=== PATIENT | female | born 1990 | race Caucasian/White ===

== ENCOUNTER 2018-08-29 10:05 | Emergency (ER) | payer OTHER ==
--- OUTSIDE RECORDS SUMMARY | 2018-08-29 10:56 | XMS REPORT | Continuity of Care Document ---
:1990 External Reference #:[id number] Author Name Amalia Hearn M.D. Address [address] [facility] [address] [place] [address] Care Team Providers Name Role Phone Jocelin Harrison MD Care Team Information Rn Mds Unavailable Jocelin Harrison MD Primary Care Physician Unavailable Payers Date Identification Numbers Payment Provider Subscriber Policy Number: [id number] [employer] Columba Rollins PayID: [id number] [address] [place] [address] Advance Directives Description No Information Available Problems Active Problems Provider Date Hydronephrosis Amalia Hearn M.D. Onset: 07/31/2018 Kidney stone Amalia Hearn M.D. Onset: 07/31/2018 Resolved Problems Surgical follow-up Dylan Luna MD Onset: 02/07/2013 Resolved: 02/07/2013 Acute appendicitis without peritonitis Dilshad Tolentino MD Onset: 02/07/2013 Resolved: 02/07/2013 Light and infrequent menstruation Esther Sky, AYSE Onset: 11/24/2011 Resolved: 05/21/2015 Normal Mary Kapoor MD Onset: 11/05/2014 Resolved: 05/21/2015 Family History Date Family Member(s) Observation Comments General one daughter has murmur and ? hole in heart Father No Current Problems Mother Kidney Stones Mother Pancreatitis Social History Type Date Description Comments Sex Unknown Lives With Children Lives With Sister Lives With Family Diet Patient follows no dietary restrictions Occupation Works at [employer] Tobacco Use Start: Unknown Current Cigarette Smoker 1 x 6-7 years Pack Daily ETOH Use Denies alcohol use Tobacco Use Start: Unknown End: Patient is a former smoker Unknown Recreational Drug Use Denies Drug Use Smoking Status Reviewed: 07/31/18 Patient is a former smoker Allergies, Adverse Reactions, Alerts Active Allergies Reaction Severity Comments Date Penicillin 01/31/2013 Sulfa Drugs 01/31/2013 Ceclor hives/joint swelling 01/31/2013 Amoxicillin 01/31/2013 Medications Active Medications SIG Qnty Indications Ordering Provider Date Work August Antwon, 05/21/2015 return to work MD Mary with no restrictions. Acetaminophen 20 ml by mouth q 960ml Antwon, 04/07/2015 160mg/5ML 4 hours as MD Mary Elixir needed Flintstones Plus Iron 1 tab daily Unknown Chewtabs History Medications Fludrocortisone Acetate 1 by mouth every 90tabs Foster Prescott 2017 - marc Leo M.D., [facility] 07/31/2018 0.1mg Tablets Azithromycin 12.5 ml by mouth 37.5ml Antwon, 05/21/2015 - 200mg/5ML day 1 then 6.25 MD Mary 05/27/2015 Suspension Rec ml day 2-5 Azithromycin 12.5 ml by mouth 37.5ml Antwon, 05/11/2015 - 200mg/5ML day 1 then 6.25 MD Mary 05/16/2015 Suspension Rec ml day 2-5 Ortho Evra apply one patch 3units Kapoor, 04/30/2015 - 150-35mcg/24HR topically once a MD Mary Unknown Patches Weekly week Ibuprofen Childrens 30 ml by mouth 474ml Antwon, 04/07/2015 - every 4 hours as MD Mary 07/31/2018 100mg/5ML Suspension needed Pantoprazole Sodium 1 by mouth every 30tabs Antwon, 02/02/2015 - 40mg day MD Mary 05/21/[address] No Active Medications Unknown 08/12/2014 - 08/12/2014 1 by mouth every 30tabs Antwon, 08/12/2014 - 27-1mg Tablets day MD Mary 05/21/2015 Zofran Odt 1 by mouth every 15tabs Antwon 08/12/2014 - 4mg Tablets 4 hours as needed MD Mary 12/03/2014 Dispers Azithromycin 12.5 ml by mouth 37.5ml Antwon, 08/05/2014 - 200mg/5ML day 1 then 6.25 MD Mary 08/12/2014 Suspension Rec ml day 2-5 Loratadine Childrens 10 ml by mouth 300units Antwon 10/28/2013 - every day MD Mary 08/12/2014 5mg/5ML Solution Mirena Antwon, 10/01/2013 - 20mcg/24HR IUD MD Mary 08/05/2014 No Active Medications Dylan Luna MD 01/31/2013 - 10/28/2013 Immunizations CPT Code Status Date Vaccine Lot # [id number] Given 10/01/2013 Hepatitis B Vaccine Pediatric/Adolescent 30984 Given 01/15/1998 Varicella (Chicken Pox) Vaccine 55144 Given 01/15/1998 Poliovirus Vaccine Subcutaneous Or Intramuscular 22265 Given 01/15/1998 MMR Vaccine, Live, For Subcutaneous Use 70028 Given 09/15/1997 DTaP Vaccine Younger Than 7 87683 Given 06/22/1994 Poliovirus Vaccine Subcutaneous Or Intramuscular 51362 Given 06/22/1994 MMR Vaccine, Live, For Subcutaneous Use 19811 Given 06/22/1994 DTaP Vaccine Younger Than 7 52804 Given 06/22/1994 Hib PRP-T Conjugate 4 Dose Schedule 61347 Given 03/29/1993 Hepatitis B Vaccine Pediatric/Adolescent 17765 Given 1992 DTaP Vaccine Younger Than 7 71736 Given 1992 Hib PRP-T Conjugate 4 Dose Schedule 83544 Given 1992 Hepatitis B Vaccine Pediatric/Adolescent 38381 Given 1990 Poliovirus Vaccine Subcutaneous Or Intramuscular 46707 Given 1992 DTaP Vaccine Younger Than 7 23249 Given 1992 Hib PRP-T Conjugate 4 Dose Schedule 78983 Given 1990 Poliovirus Vaccine Subcutaneous Or Intramuscular 59655 Given 1992 DTaP Vaccine Younger Than 7 77904 Given 1990 Hib PRP-T Conjugate 4 Dose Schedule Vital Signs Date Vital Result Comment 07/31/2018 10:11am BP Systolic 108 mmHg BP Diastolic 72 mmHg Body Temperature 97.9 F Heart Rate 105 /min Respiratory Rate 16 /min Height 62 inches 5'2" Weight 123.12 lb BMI (Body Mass Index) 22.5 kg/m2 BSA (Body Surface Area) 1.56 m2 [place] body weight in kilograms 50 kg O2 % BldC Oximetry 98 % Pain Level 3 right flank pain 02/27/2018 3:19pm BP Systolic Sitting Left Arm 98 mmHg BP Diastolic Sitting Left Arm 60 mmHg Heart Rate 93 /min Respiratory Rate 16 /min Height 65 inches 5'5" Weight 98.00 lb BMI (Body Mass Index) 16.3 kg/m2 BSA (Body Surface Area) 1.46 m2 [place] body weight in kilograms 57 kg O2 Saturation Level with Exercise 98 % 05/21/2015 5:35pm BP Systolic 118 mmHg BP Diastolic 62 mmHg Height 65 inches 5'5" Weight 116.50 lb BMI (Body Mass Index) 19.4 kg/m2 BSA (Body Surface Area) 1.57 m2 Last Menstrual Period [id number] 03/31/2015 5:42pm BP Systolic 106 mmHg BP Diastolic 70 mmHg Height 62 inches 5'2" Weight 136.31 lb BMI (Body Mass Index) 24.9 kg/m2 BSA (Body Surface Area) 1.62 m2 03/24/2015 2:47pm BP Systolic 100 mmHg BP Diastolic 70 mmHg Height 62 inches 5'2" Weight 135.38 lb BMI (Body Mass Index) 24.8 kg/m2 BSA (Body Surface Area) 1.62 m2 03/17/2015 6:16pm BP Systolic 106 mmHg BP Diastolic 78 mmHg Height 62 inches 5'2" Weight 134.38 lb BMI (Body Mass Index) 24.6 kg/m2 BSA (Body Surface Area) 1.61 m2 03/10/2015 7:12pm BP Systolic 112 mmHg BP Diastolic 60 mmHg Height 62 inches 5'2" Weight 134.25 lb BMI (Body Mass Index) 24.6 kg/m2 BSA (Body Surface Area) 1.61 m2 02/23/2015 7:21pm BP Systolic 120 mmHg BP Diastolic 54 mmHg Height 62 inches 5'2" Weight 130.38 lb BMI (Body Mass Index) 23.8 kg/m2 BSA (Body Surface Area) 1.59 m2 02/02/2015 7:15pm BP Systolic 120 mmHg BP Diastolic 58 mmHg Height 63 inches 5'3" Weight 124.00 lb BMI (Body Mass Index) 22.0 kg/m2 BSA (Body Surface Area) 1.58 m2 12/03/2014 2:02pm BP Systolic 108 mmHg BP Diastolic 60 mmHg Height 62 inches 5'2" Weight 106.25 lb BMI (Body Mass Index) 19.4 kg/m2 BSA (Body Surface Area) 1.46 m2 10/29/2014 6:39pm BP Systolic 100 mmHg BP Diastolic 62 mmHg Height 62 inches 5'2" Weight 102.00 lb BMI (Body Mass Index) 18.7 kg/m2 BSA (Body Surface Area) 1.44 m2 08/12/2014 10:31am BP Systolic Sitting Left Arm 104 mmHg BP Diastolic Sitting Left Arm 64 mmHg Weight 95.00 lb Last Menstrual Period [id number] 08/05/2014 1:37pm BP Systolic 90 mmHg BP Diastolic 54 mmHg Height 62 inches 5'2" Weight 98.00 lb BMI (Body Mass Index) 17.9 kg/m2 BSA (Body Surface Area) 1.41 m2 01/20/2014 1:40pm BP Systolic 108 mmHg BP Diastolic 56 mmHg Body Temperature 99.6 F Weight 99.00 lb 10/28/2013 4:44pm BP Systolic 92 mmHg BP Diastolic 64 mmHg Body Temperature 99.0 F Height 62 inches 5'2" Weight 97.00 lb 10/01/2013 10:25am BP Systolic 110 mmHg BP Diastolic 62 mmHg Heart Rate 100 /min Height 63 inches 5'3" Weight 97.00 lb 05/24/2013 11:07am BP Systolic 104 mmHg BP Diastolic 62 mmHg Height 63 inches 5'3" Weight 96.00 lb 02/07/2013 1:52pm BP Systolic Sitting Left Arm 106 mmHg BP Diastolic Sitting Left Arm 68 mmHg Body Temperature 99.2 F Heart Rate 101 /min Height 61 inches 5'1" Weight 95.00 lb BMI (Body Mass Index) 17.9 kg/m2 BSA (Body Surface Area) 1.38 m2 11/24/2011 10:58am BP Systolic 118 mmHg BP Diastolic 70 mmHg Height 61 inches 5'1" Weight 92.00 lb 01/24/2011 11:31am BP Systolic 98 mmHg BP Diastolic 60 mmHg Height 62 inches 5'2" Weight 98.00 lb Results Test Date Facility Test Result H/L Range Note Urine Dipstick 07/31/2018 [facility] Ua Color bloody Yellow Ua Clarity bloody Clear Ua Leuko 500 High Negative Ua Nitrite neg Negative Ua Urobilinogen 0.2 0.2 - 1.0 E.U./dL Ua Protein 30 High Negative Ua PH 6.0 Low 6.5-7.5 Ua Blood 200 High Negative Ua Specific Drift 1.020 1.010-1.030 Ua Ketones 5mg High Negative Ua Bilirubin neg Negative Ua Glucose neg Negative CBC 04/05/2015 [facility] White Blood Count 11.5 K/uL High 3.1-10.[address] [place] [address] [phone] Red Blood Count 3.94 M/uL 3.90-5.40 Hemoglobin 11.4 gm/dL Low 11.6-15.8 Hematocrit 35.9 % Low 36.0-46.1 Mean Cell Volume 91.1 fl 80.9-99.0 Mean Corpuscular HGB 28.9 pg 25.9-32.7 Mean Corpuscular HGB Conc 31.8 g/dL 30.8-34.3 Platelet Count 215 K/uL 155-360 Red Cell Distri Width %CV 13.8 % 11.7-14.4 Mean Platelet Volume 10.9 fL 8.9-12.4 Laboratory test 04/05/2015 [facility] Treponema Nonreactive [address] [place] [address] [place] [phone] Type And Screen 04/05/2015 [facility] Patient Blood A POS [address] [place] [address] [phone] Antibody Screen Negative Negative Laboratory test 03/10/2015 [facility] Vaginal Strep See Note [address] [place] [address] [phone] Laboratory test 03/10/2015 [facility] Chlamydia Negative Negative [address] Trachomatis, [place] [address] Cristy [phone] Glucose,1 HR Post 01/15/2015 [facility] 1 HR 102 mg/dL -138 [address] [place] [address] Gluc[place] [phone] 1 Hour Urine Glucose NEGATIVE % Negative 1 Hour Urine Ketone NEGATIVE Negative Hemoglobin/Hematocrit 01/15/2015 [facility] Hemoglobin 11.1 Low 11.6-15.[address] gm/dL [place], [place] [id number] [phone] Hematocrit 34.1 % Low 36.0-46.1 CBC W/Automated Diff 10/29/2014 [facility] White Blood 8.6 K/uL 3.1-10.[address] Count [place], [place] [id number] [phone] Red Blood Count 3.64 M/uL Low 3.90-5.40 Hemoglobin 12.3 gm/dL 11.6-15.8 Hematocrit 35.0 % Low 36.0-46.1 Mean Cell Volume 96.2 fl 80.9-99.0 Mean Corpuscular HGB 33.8 pg High 25.9-32.7 Mean Corpuscular HGB Conc 35.1 g/dL High 30.8-34.3 Platelet Count 239 K/uL 155-360 Red Cell Distri Width SD 45.7 fl 3-47 Red Cell Distri Width %CV 13.6 % 11.7-14.4 Mean Platelet Volume 10.5 fL 8.9-12.4 Neut% 65.7 % 40.4-72.8 Lymph % 27.8 % 17.0-46.1 Divide % 5.8 % 4.3-13.2 Eo% 0.6 % 0.0-6.6 Bas% 0.1 % 0.0-1.1 Neut# 5.66 K/uL 1.0-7.0 Lymph # 2.40 K/uL 1.8-7.0 Divide # 0.50 K/uL 0.3-0.9 Eos # 0.05 K/uL 0.0-0.5 Baso # 0.01 K/uL 0.0-0.1 Laboratory test 10/29/2014 [facility] Rapid Plasma NONREACTIVE [address] [place] [address] [phone] Hepatitis B Surface Antigen Nonreactive Nonreactive 6 Rubella IgG 10/29/2014 [facility] Rubella IgG Reactive Antibody [address] [place] [place] [address] [phone] Rubella IgG Iu/ml 217.2 IU/mL >=10.0 7 Laboratory test 10/29/2014 [facility] Antibody Detection See Note [address] [place], [place] [id number] [phone] Lead,Blood (Adult) 1 g/dL 0-19 9 Varicella-Zoster Virus IgG Ab 1730 Immune>165ind 10 Urine Culture See Note 11 Genital Culture W/ Gram 10/29/2014 [facility] Gram Stain See Note 12 Stain [address] [place], [place] [id number] [phone] Genital Culture See Note 13 Chlamydia/GC Cristy 10/29/2014 [facility] Chlamydia Negative Negative [address] Trachomatis, Cristy [place], [place] [address] [phone] Neisseria Gonorrhoeae, Cristy Negative Negative Please note: See Note 14 Type And Screen 10/29/2014 [facility] Patient Blood Type A POS [address] [place], [place] [id number] [phone] Antibody Screen Negative Negative Laboratory test 08/03/2014 [facility] HCG, Quant 11787.0 15 finding [address] mIU/[place] [address] [phone] Urinalysis With 08/03/2014 [facility] Urine Color YELLOW Yellow Microscopic [address] [place] [address] [phone] Urine Clarity CLEAR Clear Urine Glucose - Dipstick NEGATIVE mg/dL Negative Urine Bilirubin - Dipstick NEGATIVE Negative Urine Ketone NEGATIVE mg/dL Negative Urine Specific Drift >=1.030 1.010-1.030 Urine Blood LARGE High Negative Urine PH 5.5 Low 6.5-7.5 Urine Protein - Dipstick NEGATIVE mg/dL Negative Urine Urobilinogen - Dipstick 0.2 E.U./dL 0.2-1.0 Urine Nitrite - Dipstick NEGATIVE Negative Urine Leuk Esterase NEGATIVE Negative Urine RBC 20-30 rbc/hpf High 0-2 Urine WBC 0-2 wbc/hpf 0-7 Urine Epithelial Cells FEW NONESEEN/lpf Urine Bacteria FEW NONESEEN Urine Mucus SMALL NONESEEN Laboratory test 08/03/2014 [facility] Urine Screen See Note 16 finding [address] [place] [address] [phone] Urine Screen 04/22/2014 N2N/[facility] Import Urine Bilirubin Negative Negative - Dipstick Urine Blood Negative Negative Urine Clarity Clear Clear Urine Color Yellow Yellow Urine Glucose - Dipstick Negative mg/dL Negative Urine Ketone Negative mg/dL Negative Urine Leuk Esterase Negative Negative Urine Nitrite - Dipstick Negative Negative Urine PH 6.0 Low 6.5-7.5 Urine Protein - Dipstick Negative mg/dL Negative Urine Specific Drift >=1.030 1.010-1.030 Urine Urobilinogen - Dipstick 0.2 E.U./dL 0.2-1.0 Laboratory test 04/22/2014 N2N/[facility]D Import Urine HCG Negative Negative 17 finding (Qualitative) GC / Chlamydia 01/20/2014 N2N/CCD Import Chlamydia Negative GC Negative 18 Affirm 01/20/2014 N2N/CCD Import Anne Positive 19 Gardnerella Negative Trichomonas Negative Comprehensive Metabolic Panel 01/12/2014 N2N/CCD Import Alb/Glob 1.2 ratio Albumin 4.2 g/dL 3.4-5.0 Alkaline Phosphatase 81 U/L 45-117 Anion Gap 10 mEq/L 8-16 BUN 11 mg/dL 7-18 BUN/Creat 12.2 ratio Bilirubin,Total 0.5 mg/dL 0.2-1.0 Calcium 9.3 mg/dL 8.5-10.1 Carbon Dioxide 26 mmol/L 21-32 Chloride 109 mmol/L High 98-107 Creatinine 0.9 mg/dL 0.6-1.3 Globulin 3.5 g/dL 1.9-4.3 Glom Filtration Rate, Estimate >60 mL/min >60 Glucose 88 mg/dL 74-106 If >60 mL/min >60 20 Potassium 3.7 mmol/L 3.5-5.1 SGPT/Alt 19 U/L 12-78 Sgot/Ast 9 U/L Low 15-37 Sodium 141 mmol/L 136-145 Total Protein 7.7 g/dL 6.4-8.2 CBC 01/12/2014 N2N/CCD Import Hematocrit 41.4 % 36.0-46.1 Hemoglobin 14.5 gm/dL 11.6-15.8 Mean Cell Volume 93.9 fl 80.9-99.0 Mean Corpuscular HGB 32.9 pg High 25.9-32.7 Mean Corpuscular HGB Conc 35.0 g/dL High 30.8-34.3 Mean Platelet Volume 10.7 fL 8.9-12.4 Platelet Count 235 K/uL 155-360 Red Blood Count 4.41 M/uL 3.90-5.40 Red Cell Distri Width %CV 12.2 % 11.7-14.4 White Blood Count 8.6 K/uL 3.1-10.7 Laboratory test 01/12/2014 N2N/CCD Import Thyroid Stim 1.74 uIU/mL 0.36- 3.74 finding Hormone Laboratory test 01/31/2013 [facility] Appendix See Note 21 finding [address] [place] [address] [phone] Type And Screen 07/22/2012 N2N/CCD Import Antibody Screen Negative Negative Patient Blood Type A Pos 1 Please Note: A nonreactive test result does not exclude the possibility of exposure to, or infection with syphilis. T. pallidum antibodies may be undetectable in some stages of the infection and in some clinical conditions. 2 NO GROUP B STREPTOCOCCI ISOLATED 3 A negative result for either C. trachomatis and/or N. gonorrhoeae does not preclued an infection because results are dependent on adequate specimen collection, absence of inhibitors, and sufficient DNA to be detected. 4 POST GLUCOLA 5 PENDING; TEST PERFORMED ON MONDAYS AND THURSDAYS 6 HBsAg not detected; does not exclude the possibility of exposure to or early acute infections with HBV. 7 Values >=10.0 IU/mL are positive for IgG antibodies to rubella virus and are considered IMMUNE. 8 No reportable results 9 Environmental Exposure: WHO Recommendation <20 Occupational Exposure: OSHA Lead Std 40 DESTINI 30 Detection Limit=1 10 Negative <135 Equivocal 135 - 165 Positive >165 A positive result generally indicates exposure to the pathogen or administration of specific immunoglobulins, but it is not indication of active infection or stage of disease. 11 Organism 1 ! ESCHERICHIA COLI Quantity ! 10,000 - 50,000 CFU/mL ESCHERICHIA COLI Target Route Dose M.I.C. RX AB COST ------ ----- -------- ------ -- ------ NITROFURANTOIN <=16 S TRIMETHOPRIM/SULFAMETHOXAZOLE <=20 S AMPICILLIN <=2 S CEFAZOLIN <=4 S AMPICILLIN/SULBACTAM <=2 S CIPROFLOXACIN >=4 R PIPERACILLIN/TAZOBACTAM <=4 S CEFTAZIDIME <=1 S CEFTRIAXONE <=1 S CEFEPIME <=1 S LEVOFLOXACIN >=8 R IMIPENEM <=0.25 S GENTAMICIN <=1 S TOBRAMYCIN <=1 S 12 GRAM STAIN ! GRAM STAIN INDICATES NORMAL GENITAL BONNIE ! FEW GR POS. BACILLI SUGGESTIVE OF LACTOBACILLUS SP. ! RARE GRAM POSITIVE COCCI ! NO WHITE BLOOD CELLS ! 13 Organism 1 ! YEAST SPECIES Quantity ! FEW 14 Acceptable specimens for this test are male urethral swab, endocervical swab and liquid based pap specimens, vaginal swabs in APTIMA transports and first void urine. See online Directory of Services for test number for rectal and pharyngeal specimens. Performed at: RN - [facility] [address] [id number] Publicity Person: Kerry Masters MD, Phone: [phone] Result confirmed by repeat analysis. Approximate Gestational Age and Total BHCG Range: 0.2 - 1 Week........................5-50 mIU/mL 1 - 2 Weeks.....................50-500 mIU/mL 2 - 3 Weeks..................100-5,000 mIU/mL 3 - 4 Weeks.................500-10,000 mIU/mL 4 - 5 Weeks...............1,000-50,000 mIU/mL 5 - 6 Weeks.............10,000-100,000 mIU/mL 6 - 8 Weeks.............15,000-200,000 mIU/mL 2 - 3 Months............10,000-100,000 mIU/mL 16 08/03/14 [facility] Deleted by Reflex Group UACOM 17 FIRST MORNING SPECIMENS GENERALLY CONTAIN THE HIGHEST CONCENTRATION OF HCG AND ARE RECOMMENDED FOR EARLY DETECTION OF . 18 Special Testing Laboratory [facility], [address] [place] [address] GC / CHLAMYDIA REPORT Name: Columba Rollins : 1990 (Age: 23) Sex: F Location: [facility]. Rec. # [id number] Date Collected: 01/20/2014 Billing #: [id number] Date Received: 01/20/2014 Requisition # [id number] Physician(s): ISAEL QUIROZ Source of Specimen: Endocervical swab Results: Neisseria gonorrhoeae NEGATIVE Chlamydia trachomatis NEGATIVE Comment: This analysis was performed using second generation nucleic acid amplification testing (NAAT). Reported: 01/21/2014 Electronic Signature neal Gutierrez 3LM [facility] ICD-9 Codes: 616.10 19 Special Testing Laboratory [address] [place] [address], [address] [place] [address] AFFIRM VAGINOSIS / VAGINITIS REPORT Name: Columba Rollins : 1990 (Age: 23) Sex: F Location: [facility]. Rec. # [id number] Date Collected: 01/20/2014 Billing #: [id number] Date Received: 01/20/2014 Requisition # [id number] Physician(s): ISAEL QUIROZ Source of Specimen: Vaginal Results: Anne species DNA Probe POSITIVE Gardnerella vaginalis DNA Probe NEGATIVE Trichomonas vaginalis DNA Probe NEGATIVE Reported: 01/21/2014 Electronic Signature neal Gutierrez Elliptic [facility] [employer] [facility] ICD-9 Codes: 616.10 20 Note: Persistent reduction for 3 months or more in an eGFR <60 mL/min/1.73 m2 defines CKD. Patients with eGFR values >/=60 mL/min/1.73 m2 may also have CKD if evidence of persistent proteinuria is present. The original MDRD equation for estimated GFR is not valid for patients less than 18 years of age. Additional information may be found at www.kdoqi.org. 21 OPERATION/PROCEDURE Appendectomy DIAGNOSIS: "APPENDIX, APPENDECTOMY": ACUTE APPENDICITIS, WITH SEROSITIS. Rand 1352 GROSS Received in formalin labeled "APPENDIX" is a grossly recognizable inflamed appendix measuring 5.8 cm. in length with a diameter of up to 1.4 cm. There is marked serosal congestion, and purulent exudate over the distal portion of the appendix. The lumen is distented by a hemorrhagic fluid. Serial sectioning through the remainder of the appendix fails to demonstrate evidence of perforation, suspicious mass, or fecalith. Grave Digger sections are submitted within a single cassette. WS/xiomara MICROSCOPIC Sections reveal sheets of luminal neutrophils eroding into the wall of the appendix, without evidence of perforation. Lymphoid follicles are hypertrophied. The serosal vessels are congested and have a fibrinopurulent exudate. PRE OPERATIVE DIAGNOSIS Acute appendicitis REVIEW CODE CODE: I ERIC Kam MD 02/01/13 1652 Procedures Date Code Description Status 03/26/2018 30128 Echocardiogram Complete Completed 03/16/2018 19038 Event Monitor Inter/Review Only Completed 02/27/2018 99266 EKG-Tracing And Report Completed 05/21/2015 98590 Post- Care Only Completed 04/04/2015 [address] [facility] Care Completed 03/31/2015 28512 Antepartum 7 Or More Total Office Visit Completed 03/24/2015 22877 Antepartum 7 Or More Total Office Visit Completed 03/17/2015 80111 Antepartum 7 Or More Total Office Visit Completed 03/10/2015 03687 Antepartum 7 Or More Total Office Visit Completed 02/23/2015 34171 Antepartum 7 Or More Total Office Visit Completed 02/02/2015 52711 Antepartum 7 Or More Total Office Visit Completed 01/12/2015 58042 Antepartum 7 Or More Total Office Visit Completed 12/03/2014 01239 Antepartum 7 Or More Total Office Visit Completed 10/29/2014 69360 Antepartum 7 Or More Total Office Visit Completed 01/31/2013 26917 Appendectomy Completed 01/31/2013 69248 Anesthesia, Lower Abdomen Surgery Not Otherwise Spec Completed 07/22/2012 79285 Vaginal Delivery Only Completed 11/19/2009 01885 Post- Care Only Completed 10/01/2009 95520 Antepartum 7 Or More Total Office Visit Completed 09/23/2009 42792 Antepartum 7 Or More Total Office Visit Completed 09/17/2009 75283 Antepartum 7 Or More Total Office Visit Completed 09/09/2009 04335 Antepartum 7 Or More Total Office Visit Completed 09/02/2009 13142 Antepartum 7 Or More Total Office Visit Completed 08/18/2009 86973 Antepartum 7 Or More Total Office Visit Completed 08/05/2009 76303 Antepartum 7 Or More Total Office Visit Completed 07/22/2009 69296 Antepartum 7 Or More Total Office Visit Completed 07/14/2009 72945 Antepartum 7 Or More Total Office Visit Completed 07/07/2009 54263 Antepartum 7 Or More Total Office Visit Completed 06/16/2009 43687 Antepartum 7 Or More Total Office Visit Completed 05/20/2009 26467 Antepartum 7 Or More Total Office Visit Completed 04/16/2009 67686 Antepartum 7 Or More Total Office Visit Completed 03/16/2009 70338 Antepartum 7 Or More Total Office Visit Completed Encounters Type Date Location Provider Dx Diagnosis Office Visit 07/31/2018 Urology Amalia Hearn, N13.39 Other hydronephrosis 10:00a M.DJonas N20.0 Calculus of kidney Office Visit 02/27/2018 3:00p Cardiology Office Cayden Martínez, R00.2 Palpitations MD Office Visit 08/12/2014 10:30a Family Medicine Antwon V72.42 Klaus Hernandez MD Examination Or Test Positive Result Office Visit 08/05/2014 1:15p Family Medicine Antwon, 640.03 Klaus Hernandez MD Threatened Antepartum Condition Or Complication Office Visit 01/31/2013 12:47p Surgical Office Dylan Luna, 540.9 Appendicitis Acute MD W/O Peritonitis Plan of Treatment Future Appointment(s):08/23/2018 1:45 pm - Amalia Hearn M.D. at [id number] - Amalia Hearn M.D.N13.39 Other hydronephrosisNew Xrays:CT, Abdomen & Pelvis W/O Contrast, Ordered: 07/31/18Comments:Patient currently is asymptomatic. Her urine cultures have been negative. She has no signs of sepsis. I will check a BMP today. As long as the patient is stable we will need to do a CT scan right after she delivers for further evaluation of her stone burden. I talked to Dr. Harrison over the phone and she will deliver the baby once term is reached and I will order a CT scan to be done after delivery. The patient has signs of sepsis or UTI then we'll need to put a stent prior to delivery.N20.0 Calculus of kidneyNew Xrays:CT, Abdomen & Pelvis W/O Contrast, Ordered: 07/31/18Comments:I do not have the ultrasound images today however the report comments on a large stone volume on theright side with hydronephrosis.
[2018-08-29 11:03] VITALS: BP 118/71
--- NOTE | 2018-08-29 11:50 | UC ---
UC General HPI - HPI Summary HPI Summary: pt noted a red swollen area on her R lower leg this am. her doctors office told her to come here for an U/S. she denies fever, calf pain, cp and sob. she is 2 days post . - History of Current Complaint Chief Complaint: UCGeneralIllness Stated Complaint: LEG CONCERN Time Seen by Provider: 08/29/18 11:43 Hx Obtained From: Patient Hx Last Menstrual Period: november 2017 Timing: Constant Pain Intensity: 0 Aggravating: nothing Associated Signs & Symptoms: Negative: Chest Pain, Fever, SOB - Allergy/Home Medications Allergies/Adverse Reactions: Allergies Allergy/AdvReac Type Severity Reaction Status Date / Time amoxicillin Allergy Hives Verified 08/29/18 11:04 cefaclor Allergy Hives Verified 08/29/18 11:04 Penicillins Allergy Hives Verified 08/29/18 11:04 Sulfa (Sulfonamide Allergy Hives Verified 08/29/18 11:04 Antibiotics) PMH/Surg Hx/FS Hx/Imm Hx - Additional Past Medical History Additional PMH: 2 days post - Surgical History Surgical History: Yes Surgery Procedure, Year, and Place: [facility]01/20 - Family History Known Family History: Positive: Non-Contributory - Social History Alcohol Use: None Substance Use Type: None Smoking Status (MU): Former Smoker Review of Systems All Other Systems Reviewed And Are Negative: Yes Skin: Positive: Rash Physical Exam Triage Information Reviewed: Yes Appearance: Well-Appearing Vital Signs: Initial Vital Signs Temp 97.9 F 08/29/18 10:57 Pulse 97 08/29/18 10:57 Resp 16 08/29/18 10:57 BP 118/71 08/29/18 10:57 Pulse Ox 99 08/29/18 10:57 Vital Signs Reviewed: Yes Eyes: Positive: Conjunctiva Clear Neck: Positive: Supple Respiratory: Positive: Lungs clear, Normal breath sounds, No respiratory distress Cardiovascular: Positive: RRR Abdomen Description: Positive: Nontender Musculoskeletal: Positive: ROM Intact Neurological: Positive: Alert Psychological: Positive: Age Appropriate Behavior Skin Exam: Normal Skin: Positive: Rashes - R loer-lateral leg has a slightly swollen-pink, oval shaped are with slight warmth. no bites or streaking. No calf tenderness or cords to RLE. Diagnostics - Radiology No standard instances Radiology Interpretation Completed By: Radiologist - IMPRESSION: No evidence for RIGHT lower extremity deep venous thrombosis. Course/Dx - Differential Dx - Multi-Symptom Differential Diagnoses: Other - U/S negative for DVT. No insect bites. Not a bullseye. will tx for cellulitis. 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 - Diagnoses Provider Diagnosis: Cellulitis Discharge - Sign-Out/Discharge Documenting (check all that apply): Patient Departure All imaging exams completed and their final reports reviewed: No Studies - Discharge Plan Condition: Stable Disposition: HOME Prescriptions: Azithromycin 200/5 SUSP(NF) [Zithromax 200 mg/5 ml SUSP(NF)] 500 mg PO DAILY 5 Days #62.5 ml Patient Education Materials: Cellulitis (DC) Referrals: Jocelin Harrison MD [Primary Care Provider] - 2 Days - Billing Disposition and Condition Condition: STABLE Disposition: Home
== END 2018-08-29 12:02 | disposition home or self-care (01) ==
LOC: UCCORT 10:05
DX: L03.115 Cellulitis of right lower limb (principal); Z87.891 Personal history of nicotine dependence; Z88.0 Allergy status to penicillin; Z88.1 Allergy status to other antibiotic agents; Z88.2 Allergy status to sulfonamides
CPT/HCPCS: 99212; G0463

== ENCOUNTER 2019-04-09 13:05 | Emergency (ER) | payer OTHER ==
--- OUTSIDE RECORDS SUMMARY | 2019-04-09 14:22 | XMS REPORT | Continuity of Care Document ---
:1990 External Reference #:[id number] Author Name Amalia Hearn M.D. Address [address] [place] [address] Care Team Providers Name Role Phone Ananth Parson MD - Otolaryngology Care Team Information Business Analyst Intern Jocelin Harrison MD - Student in Care Team Information Business Analyst Intern an Organized Health Care Education/Training Program Problems Active Problems Provider Date Hydronephrosis Amalia Hearn M.D. Onset: 07/31/2018 Kidney stone Amalia Hearn M.D. Onset: 07/31/2018 Social History Type Date Description Comments Sex Unknown Tobacco Use Start: Unknown Current Cigarette Smoker 1 x 6-7 years Pack Daily ETOH Use Denies alcohol use Tobacco Use Start: Unknown End: Patient is a former smoker Unknown Recreational Drug Use Denies Drug Use Smoking Status Reviewed: 02/14/19 Patient is a former smoker Allergies, Adverse Reactions, Alerts Active Allergies Reaction Severity Comments Date Penicillin 01/31/2013 Sulfa Drugs 01/31/2013 Ceclor hives/joint swelling 01/31/2013 Amoxicillin 01/31/2013 Medications Active Medications SIG Qnty Indications Ordering Provider Date Work [employer] may return Mary Kapoor, 05/21/2015 to work with no MD restrictions. Immunizations CPT Code Status Date Vaccine Lot # [id number] Given 10/01/2013 Hepatitis B Vaccine Pediatric/Adolescent 26707 Given 01/15/1998 Varicella (Chicken Pox) Vaccine 53697 Given 01/15/1998 Poliovirus Vaccine Subcutaneous Or Intramuscular 79075 Given 01/15/1998 MMR Vaccine, Live, For Subcutaneous Use 50811 Given 09/15/1997 DTaP Vaccine Younger Than 7 34821 Given 06/22/1994 Poliovirus Vaccine Subcutaneous Or Intramuscular 31347 Given 06/22/1994 MMR Vaccine, Live, For Subcutaneous Use 08484 Given 06/22/1994 DTaP Vaccine Younger Than 7 07198 Given 06/22/1994 Hib PRP-T Conjugate 4 Dose Schedule 59501 Given 03/29/1993 Hepatitis B Vaccine Pediatric/Adolescent 88508 Given 1992 DTaP Vaccine Younger Than 7 53448 Given 1992 Hib PRP-T Conjugate 4 Dose Schedule 27647 Given 1992 Hepatitis B Vaccine Pediatric/Adolescent 03515 Given 1992 Poliovirus Vaccine Subcutaneous Or Intramuscular 46265 Given 1992 DTaP Vaccine Younger Than 7 07298 Given 1992 Hib PRP-T Conjugate 4 Dose Schedule 85275 Given 1992 Poliovirus Vaccine Subcutaneous Or Intramuscular 03193 Given 1992 DTaP Vaccine Younger Than 7 67338 Given 1992 Hib PRP-T Conjugate 4 Dose Schedule Vital Signs Date Vital Result Comment 02/14/2019 11:32am BP Systolic 107 mmHg BP Diastolic 66 mmHg Body Temperature 98.6 F Heart Rate 92 /min Respiratory Rate 16 /min Height 62 inches 5'2" Weight 109.00 lb BMI (Body Mass Index) 19.9 kg/m2 BSA (Body Surface Area) 1.48 m2 [place] body weight in kilograms 50 kg O2 % BldC Oximetry 98 % Pain Level 5 pain in lower back and wraps around to the front. 09/13/2018 3:35pm BP Systolic Sitting Right Arm 112 mmHg BP Diastolic Sitting Right Arm 74 mmHg Body Temperature 97.9 F Heart Rate 66 /min Respiratory Rate 18 /min Height 62 inches 5'2" Weight 122.38 lb BMI (Body Mass Index) 22.4 kg/m2 BSA (Body Surface Area) 1.55 m2 [place] body weight in kilograms 50 kg O2 % BldC Oximetry 99 % Pain Level 0 Results Test Acquired Date Facility Test Result H/L Range Note Urine Dipstick 02/14/2019 [facility] Color yellow Yellow Ua Clarity clear Clear Ua Leuko neg Negative Ua Nitrite neg Negative Ua Urobilinogen 0.2 0.2 - 1.0 E.U./dL Ua Protein 30 High Negative Ua PH 6.0 Low 6.5-7.5 Ua Blood 200 High Negative Ua Specific [place] 1.0125 1.010-1.030 Ua Ketones neg Negative Ua Bilirubin 1 High Negative Ua Glucose neg Negative Procedures Date Code Description Status 02/14/2019 94705 Echography Retroperitoneal Limited Completed Medical Devices Description No Information Available Encounters Type Date Location Provider Dx Diagnosis Office Visit 02/14/2019 11:15a Urology Amalia Hearn M.D. N20.0 Calculus of kidney Office Visit 09/13/2018 3:45p Urology Amalia Hearn M.D. N20.0 Calculus of kidney Assessments Date Code Description Provider 02/14/2019 N20.0 Calculus of kidney Amalia Hearn M.D. 09/13/2018 N20.0 Calculus of kidney Amalia Hearn M.D. Plan of Treatment 02/14/2019 - Amalia Hearn M.D.N20.0 Calculus of kidneyNew Xrays:KUB Abdomen , Ordered: 02/14/19Comments:KUB was obtained today that shows 2 stones in kidney , no hydro on US done in clinic. Discussed withthe patient options of managing this and I offered her PCNL however the patient will not be able to go up to [place] for that. She wants something done in [place]. I did discuss doing shockwave lithotripsy and she would like to proceed with that. She will be scheduled for this next week or 2. She understands that the shockwave might not break the stone and she might still need another procedureto be done, I also told her that it is stones break she will still have to pass the stone and she might have some pain passing them and sometimes we need to place a stent or do ureteroscopy to remove the residual fragments. Functional Status Description No Information Available Mental Status Description No Information Available Referrals Description No Information Available
--- OUTSIDE RECORDS SUMMARY | 2019-04-09 14:22 | XMS REPORT | Continuity of Care Document ---
:1990 External Reference #:[id number] Author Name Rosemary Adan, HYDROMETER FINISHER (transmitted by agent of provider Aicha Cline) Address [address] [place] [id number] Care Team Providers Name Role Phone Ananth Parson MD - Otolaryngology Care Team Information Talent Partner Jocelin Harrison MD - Student in Care Team Information Talent Partner an Organized Health Care Education/Training Program Problems [...] Use Denies Drug Use Smoking Status Reviewed: 02/26/19 Patient is a former smoker Allergies, Adverse Reactions, Alerts Active Allergies Reaction Severity Comments Date Penicillin 01/31/2013 Sulfa Drugs 01/31/2013 Ceclor hives/joint swelling 01/31/2013 Amoxicillin 01/31/2013 Medications Active Medications SIG Qnty Indications Ordering Provider Date Work [employer] may return Mary Kapoor 05/21/2015 to work with no MD restrictions. Immunizations CPT Code Status Date Vaccine Lot # [id number] Given 10/01/2013 Hepatitis B Vaccine Pediatric/Adolescent 59795 Given 01/15/1998 Varicella (Chicken Pox) Vaccine 82305 Given 01/15/1998 Poliovirus Vaccine Subcutaneous Or Intramuscular 91112 Given 01/15/1998 MMR Vaccine, Live, For Subcutaneous Use 46947 Given 09/15/1997 DTaP Vaccine Younger Than 7 00687 Given 06/22/1994 Poliovirus Vaccine Subcutaneous Or Intramuscular 07307 Given 06/22/1994 MMR Vaccine, Live, For Subcutaneous Use 13830 Given 06/22/1994 DTaP Vaccine Younger Than 7 77642 Given 06/22/1994 Hib PRP-T Conjugate 4 Dose Schedule 10866 Given 03/29/1993 Hepatitis B Vaccine Pediatric/Adolescent 58722 Given 1992 DTaP Vaccine Younger Than 7 55381 Given 1992 Hib PRP-T Conjugate 4 Dose Schedule 08224 Given 1992 Hepatitis B Vaccine Pediatric/Adolescent 11664 Given 1992 Poliovirus Vaccine Subcutaneous Or Intramuscular 61958 Given 1992 DTaP Vaccine Younger Than 7 46010 Given 1992 Hib PRP-T Conjugate 4 Dose Schedule 61654 Given 1992 Poliovirus Vaccine Subcutaneous Or Intramuscular 81028 Given 1992 DTaP Vaccine Younger Than 7 72667 Given 1992 Hib PRP-T Conjugate 4 Dose Schedule Vital Signs Date Vital Result Comment 02/26/2019 1:37pm BP Systolic 108 mmHg BP Diastolic 66 mmHg Body Temperature 98.6 F Heart Rate 85 /min Respiratory Rate 18 /min Weight 109.50 lb O2 % BldC Oximetry 100 % Pain Level 0 02/14/2019 11:32am BP Systolic 107 mmHg BP Diastolic 66 mmHg Body Temperature 98.6 F Heart Rate 92 /min Respiratory Rate 16 /min Height 62 inches 5'2" Weight 109.00 lb BMI (Body Mass Index) 19.9 kg/m2 BSA (Body Surface Area) 1.48 m2 [place] body weight in kilograms 50 kg O2 % BldC Oximetry 98 % Pain Level 5 pain in lower back and wraps around to the front. Results Test Acquired Date Facility Test Result H/L Range Note Ua RFX Micro & 02/14/2019 [facility] Urine Color Light-Yellow Yellow 1 Culture II [address] [place] [address] [phone] Urine Clarity Clear Clear Urine Glucose - Dipstick NEGATIVE mg/dL Negative Urine Bilirubin - Dipstick NEGATIVE Negative Urine Ketone NEGATIVE mg/dL Negative Urine Specific [place] 1.025 Normal 1.010-1.030 Urine Blood MODERATE Abnormal Negative Urine PH 5.5 Low 6.5-7.5 Urine Protein - Dipstick 50 mg/dL Abnormal Negative Urine Urobilinogen - Dipstick < 2.0 mg/dL < 2.0 Urine Nitrite - Dipstick NEGATIVE Negative Urine Leuk Esterase NEGATIVE Negative Urine RBC 31-50 rbc/hpf 0-2 Urine WBC 3-5 wbc/hpf 0-5 Urine Epithelial Cells MANY /lpf None Seen Urine Bacteria FEW None Seen Urine Mucus LARGE None Seen Source: URINE, CLEAN CAT <SEE NOTE> 2 Urine Dipstick 02/14/2019 [facility] Ua Color yellow Yellow Ua Clarity clear Clear Ua Leuko neg Negative Ua Nitrite neg Negative Ua Urobilinogen 0.2 0.2 - 1.0 E.U./dL Ua Protein 30 High Negative Ua PH 6.0 Low 6.5-7.5 Ua Blood 200 High Negative Ua Specific [place] 1.0125 1.010-1.030 Ua Ketones neg Negative Ua Bilirubin 1 High Negative Ua Glucose neg Negative 1 N20.0 2 URINE, CLEAN CATCH Procedures Date Code Description Status 02/14/2019 04409 Echography Retroperitoneal Limited Completed Medical Devices Description No Information Available Encounters Type Date Location Provider Dx Diagnosis Office Visit 02/26/2019 [facility] Eitan Adan Dizziness and 1:30p GABRIELLA Patrick giddiness Office Visit 02/14/2019 Urology Amalia Hearn, N20.0 Calculus of kidney 11:15a M.D. Office Visit 09/13/2018 Urology Amalia Hearn N20.0 Calculus of kidney 3:45p M.D. Assessments Date Code Description Provider 02/26/2019 R42 Dizziness and giddiness Rosemary Adan FNP 02/14/2019 N20.0 Calculus of kidney Amalia Hearn M.D. 09/13/2018 N20.0 Calculus of kidney Amalia Hearn M.D. Plan of Treatment Future Appointment(s):03/06/2019 10:30 am - Amalia Hearn M.D. at Operating Room02/26/2019 - Rosemary Adan, [id number] Dizziness and giddinessComments:Patient was advised to go to the ED for further evaluation, patient contacted her mother and will drive to the ED for further evaluation. ED contacted to expect patient arrival Functional Status Description No Information Available Mental Status Description No Information Available Referrals Description No Information Available
[2019-04-09 14:29] VITALS: BP 111/65
--- NOTE | 2019-04-09 14:46 | UC ---
Respiratory Complaint HPI - HPI Summary HPI Summary: Pt presents with c/o cough, nasal congestion X 3 days. - History of Current Complaint Chief Complaint: UCRespiratory Stated Complaint: COUGH, SORE THROAT Time Seen by Provider: 04/09/19 14:23 Hx Obtained From: Patient Hx Last Menstrual Period: prior to miscarriage ?: No Onset/Duration: Gradual Onset, Lasting Days, Still Present Timing: Constant Severity Initially: Mild Severity Currently: Mild Pain Intensity: 0 Character: Cough: Nonproductive Associated Signs And Symptoms: Positive: URI, Nasal Congestion - Risk Factors Pulmonary Embolism Risk Factors: Negative Cardiac Risk Factors: Negative Pseudomonas Risk Factors: Negative Tuberculosis Risk Factors: Negative - Allergies/Home Medications Allergies/Adverse Reactions: Allergies Allergy/AdvReac Type Severity Reaction Status Date / Time amoxicillin Allergy Hives Verified 04/09/19 14:25 cefaclor Allergy Hives Verified 04/09/19 14:25 Penicillins Allergy Hives Verified 04/09/19 14:25 Sulfa (Sulfonamide Allergy Hives Verified 04/09/19 14:25 Antibiotics) PMH/Surg Hx/FS Hx/Imm Hx Previously Healthy: Yes - Surgical History Surgical History: Yes Surgery Procedure, Year, and Place: [facility]-01/20 - Family History Known Family History: Positive: Non-Contributory - Social History Occupation: Works From/At Home Lives: With Family Alcohol Use: None Substance Use Type: None Smoking Status (MU): Former Smoker Have You Smoked in the Last Year: No When Did the Patient Quit Smoking/Using Tobacco: 2012 - Immunization History Vaccination Up to Date: Yes Review of Systems All Other Systems Reviewed And Are Negative: Yes Constitutional: Positive: Fatigue Skin: Positive: Negative Eyes: Positive: Negative ENT: Positive: Sore Throat, Sinus Congestion Respiratory: Positive: Cough Cardiovascular: Positive: Negative Gastrointestinal: Positive: Negative Genitourinary: Positive: Negative Motor: Positive: Negative Neurovascular: Positive: Negative Musculoskeletal: Positive: Negative Neurological: Positive: Negative Psychological: Positive: Negative Is Patient Immunocompromised?: No Physical Exam Triage Information Reviewed: Yes Appearance: Well-Appearing Vital Signs: Initial Vital Signs Temp 98.4 F 04/09/19 14:26 Pulse 80 04/09/19 14:26 Resp 16 04/09/19 14:26 BP 111/65 04/09/19 14:26 Pulse Ox 100 04/09/19 14:26 Vital Signs Reviewed: Yes Eye Exam: Normal ENT: Positive: Nasal congestion Dental Exam: Normal Neck exam: Normal Respiratory Exam: Normal Cardiovascular Exam: Normal Musculoskeletal Exam: Normal Neurological Exam: Normal Psychological Exam: Normal Skin Exam: Normal Respiratory Course/Dx - Differential Dx/Diagnosis Differential Diagnosis/HQI/PQRI: Bronchitis, Influenza, Sinusitis Provider Diagnosis: Viral syndrome Discharge ED - Sign-Out/Discharge Documenting (check all that apply): Patient Departure All imaging exams completed and their final reports reviewed: No Studies - Discharge Plan Condition: Stable Disposition: HOME Prescriptions: Phenylephrine/Dm/Acetaminop/GG [Mucinex Fast-Max Cold-Flu Liq] 20 ml PO Q8H # 100 ml Patient Education Materials: Viral Syndrome (ED) Referrals: Jocelin Harrison MD [Primary Care Provider] - If Needed - Billing Disposition and Condition Condition: STABLE Disposition: Home - Attestation Statements Provider Attestation: Per institutional requirements, I have reviewed the chart, however, I was not consulted specifically or made aware of this patient by the midlevel provider. I did not personally evaluate, interact with , or disposition this patient.
== END 2019-04-09 14:59 | disposition home or self-care (01) ==
LOC: UCCORT 13:05
DX: B34.9 Viral infection, unspecified (principal); J02.9 Acute pharyngitis, unspecified; R05 Cough; R53.83 Other fatigue; J34.89 Other specified disorders of nose and nasal sinuses; Z87.891 Personal history of nicotine dependence; Z88.0 Allergy status to penicillin; Z88.1 Allergy status to other antibiotic agents; Z88.2 Allergy status to sulfonamides
CPT/HCPCS: 99212; G0463